=== PATIENT | female | born 1970 | race Hispanic/Latino ===

== ENCOUNTER 2017-03-23 11:43 | Emergency (ER) | payer BC, OTHER ==
[2017-03-23 11:43] VITALS: BMI 24.3
--- NOTE | 2017-03-23 12:10 | ED PDOC ---
HPI: Psych/Substance Abuse Time Seen by Provider: 03/23/17 12:05 Chief Complaint (Nursing): Psychiatric Evaluation Chief Complaint (Provider): Crisis evaulation History Per: Patient History/Exam Limitations: no limitations Onset/Duration Of Symptoms: Days Current Symptoms Are (Timing): Still Present Suicide/Self Injury Attempted (Context): None Modifying Factor(s): None Severity: Moderate Associated Symptoms: Depression, Other (pt reports hurting herself until she feels pain). denies: Suicidal Thoughts, Suicidal Plan Involuntary Hold By: None Additional History Per: Patient Additional Complaint(s): The pt is a 46yo female with PMHx of depression, present sot the ED with her for evaluation of "extreme depression" for the past couple days. Pt reports she feels really depressed and as if she will "jump out of her skin." Additionally states she cannot be with her family and has been having thoughts of self-harm. Pt reports pulling her hair and biting her fingers until she feels pain. She also states she visited her therapist and psychiatrist this week with no relief of her symptoms. She is currently on 25mg of Zoloft and 5 mg of Abilify which she has been compliant with. Pt denies any suicidal plan, suicidal ideation or homicidal ideation. Additionally denies any medical complaints. Of note, when asked the pt states she wants to stay in the hospital. Past Medical History Reviewed: Historical Data, Nursing Documentation, Vital Signs - Medical History PMH: Anxiety, Depression Denies: Chronic Kidney Disease - Surgical History Surgical History: No Surg Hx - Family History Family History: States: No Known Family Hx - Living Arrangements Living Arrangements: With Family - Home Medications Home Medications: Ambulatory Orders Medication Instructions Recorded ARIPiprazole [Abilify] 5 mg PO DAILY 03/23/17 Sertraline [Zoloft] 25 mg PO DAILY 03/23/17 - Allergies Allergies/Adverse Reactions: Allergies Allergy/AdvReac Type Severity Reaction Status Date / Time latex Allergy ITCHING Verified 03/23/17 12:05 Review of Systems ROS Statement: Except As Marked, All Systems Reviewed And Found Negative Psych: Positive for: Depression. Negative for: Suicidal ideation Physical Exam - Reviewed Nursing Documentation Reviewed: Yes Vital Signs Reviewed: Yes - Physical Exam Appears: Positive for: Well, Non-toxic, No Acute Distress Head Exam: Positive for: ATRAUMATIC, NORMAL INSPECTION, NORMOCEPHALIC Skin: Positive for: Normal Color Eye Exam: Positive for: Normal appearance Neck: Positive for: Normal Respiratory: Negative for: Respiratory Distress Neurologic/Psych: Positive for: Alert, Oriented. Negative for: Motor/Sensory Deficits - Laboratory Results Result Diagrams: 03/23/17 12:35 03/23/17 12:35 Urine POC: Negative - ECG ECG Rhythm: Positive for: Sinus Rhythm (NSR 73 BPM NO ECTOPY NO ACUTE CHANGES) - Progress ED Course And Treament: PATIENT MEDICALLY CLEARED FOR PSYCHIATRIC EVALUATION. Medical Decision Making Medical Decision Making: Time: 1210 Impression: 46yo female w/ depression Plan: * Crisis evaulation * Drug screen * Urinalysis * CBC * BMP * Alcohol serum Time: 1534 CXR impression: Hyperinflation; rule out COPD and or emphysema. No acute consolidation. Mild biapical pleural thickening. Scribe Attestation: All records were documented by Kareen Aponte, acting as a Scribe for MONICA Tang. Provider Scribe Attestation: All medical record entries made by the Scribe were at my direction and personally dictated by me. I have reviewed the chart and agree that the record accurately reflects my personal performance of the history, physical exam, medical decision making, and the department course for this patient. I have also personally directed, reviewed, and agree with the discharge instructions and disposition. Disposition - Clinical Impression Clinical Impression: Depression - Disposition Disposition: Other Institution Disposition Time: 21:02 Condition: FAIR
[2017-03-23 12:17] VITALS: TEMP 98.4; O2SAT 100
[2017-03-23 12:47] LABS: BASO % 0.4 % (0.0-2.0); EOS % 0.4 % (0.0-4.0); HEMATOCRIT 40.2 % (34.0-47.0); LYMPH # 1.5 K/uL (1.0-4.3); MEAN CELL VOLUME 90.9 fl (81.0-99.0); MEAN CORPUSCULAR HGB CONC 34.1 g/dL (33.0-37.0); MEAN PLATELET VOLUME 7.4 fl (7.2-11.7); MONO # 0.4 K/uL (0.0-0.8); MONO % 5.1 % (0.0-10.0); NEUT # 6.3 K/uL (1.8-7.0); NEUT % 76.1 % (50.0-75.0); WHITE BLOOD COUNT 8.3 K/uL (4.8-10.8)
[2017-03-23 12:56] LABS: ALCOHOL SERUM < 10 mg/dl (0-10); BLOOD UREA NITROGEN 10 mg/dl (7-17); CALCIUM 9.2 mg/dL (8.4-10.2); CARBON DIOXIDE 24 mmol/L (22-30); CHLORIDE 106 mmol/L (98-107); GFR AFRICAN-AMERICAN > 60; GLUCOSE,RANDOM 112 mg/dL (65-105); POTASSIUM 3.8 MMOL/L (3.6-5.0); SODIUM 140 mmol/l (132-148)
--- NOTE | 2017-03-23 13:42 | RAD ---
PROCEDURE: CHEST RADIOGRAPH, 1 VIEW HISTORY: Routine COMPARISON: Comparison chest dated 06/13/2010 FINDINGS: LUNGS: Hyperinflation; rule out COPD and or emphysema. No acute consolidation. Mild biapical pleural thickening. PLEURA: No pneumothorax or pleural fluid seen. CARDIOVASCULAR: Normal. OSSEOUS STRUCTURES: Mild levoscoliosis upper lumbar region. VISUALIZED UPPER ABDOMEN: Normal. OTHER FINDINGS: None. IMPRESSION: Hyperinflation; rule out COPD and or emphysema. No acute consolidation. Mild biapical pleural thickening.
[2017-03-23 14:07] LABS: RBC URINE 9 /hpf (0-3); URINE BACTERIA RARE (<OCC); WBC URINE 1 /hpf (0-5)
[2017-03-23 14:09] LABS: URINE BILIRUBIN NEGATIVE (NEGATIVE); URINE BLOOD MODERATE (NEGATIVE); URINE COLOR YELLOW (YELLOW); URINE GLUCOSE (UA) NEG (Normal); URINE KETONE 20 mg/dL (NEGATIVE); URINE LEUKOCYTE ESTERASE NEG Leu/uL (Negative); URINE PROTEIN NEGATIVE (NEGATIVE); URINE UROBILINOGEN 0.2-1.0 mg/dL (0.2-1.0)
[2017-03-23 18:40] VITALS: BP 101/55; PULSE 77; RESP 16
--- NOTE | 2017-03-26 10:07 | CARD ---
APPROVED REPORT EKG Measurement Heart [id number] <Conclusion> Normal sinus rhythm with sinus arrhythmia Normal ECG
== END 2017-03-23 20:40 | disposition home or self-care (01) ==
LOC: H.ER 11:43
DX: F32.9 Major depressive disorder, single episode, unspecified (principal); Z00.8 Encounter for other general examination
CPT/HCPCS: 71010; 80048; 81003; 81025; 85025; 93005; 99283; G0480